=== PATIENT | female | born 1940 | race Caucasian/White ===

== ENCOUNTER → 2017-01-21 | Outpatient (CLI) | payer MEDICARE | LOC: KOH-I 14:32 | DX: M25.561 Pain in right knee (principal); M17.11 Unilateral primary osteoarthritis, right knee; Z88.8 Allergy status to other drugs, medicaments and biological substances | CPT/HCPCS: 73564 ==

== ENCOUNTER → 2017-03-12 | Outpatient (CLI) | payer MEDICARE ==
[2017-03-12 11:01] LABS: HEMOGLOBIN 13.9 gm/dl (12.3-15.3); RED BLOOD COUNT 4.92 M/UL (4.00-5.10); WHITE BLOOD COUNT 5.7 K/UL (4.5-11.0)
== END ==
LOC: LAB 09:58
DX: I10 Essential (primary) hypertension (principal); E03.9 Hypothyroidism, unspecified; E78.5 Hyperlipidemia, unspecified; M85.80 Other specified disorders of bone density and structure, unspecified site
CPT/HCPCS: 36415; 80053; 80061; 82550; 84439; 84443; 85027

== ENCOUNTER → 2021-04-17 | Outpatient (CLI) | payer MEDICARE ==
[~2021-04-17] MED LIST: AUGMENTIN 875-1 EACH PO; BENTYL 10MG CAP10 MG PO; CALCIUM600 MG PO; CARAFATE1 GM PO; CHILDREN'S ASPI81 MG PO; ELIQUIS2.5 MG PO; LEVOXYL50 MCG PO; LIPITOR20 MG PO; MULTI-VITAMIN1 EACH PO; NORCO 10-325 T1 EACH PO; NORVASC5 MG PO; OMEGA-31000 MG PO; OMNICEF 300 MG300 MG PO; ONDANSETRON ODT4 MG PO; ONE DAILY FOR1 EAC3 PO; PANTOPRAZOLE SO40 MG PO; PEPCID20 MG PO; PEPCID40 MG PO; PRILOSEC OTC20 MG PO; PROZAC40 MG PO; TOPROL XL50 MG PO; TYLENOL 8 HOUR650 MG PO; VISTARIL25 MG PO; VITAMIN D2000 UNI1 PO; ZESTRIL2.5 MG PO
== END ==
LOC: RAD 11:42
DX: M19.012 Primary osteoarthritis, left shoulder (principal)
CPT/HCPCS: 73030

== ENCOUNTER → 2022-08-11 | Outpatient (CLI) | payer MEDICARE | LOC: RAD 15:37 | DX: M16.12 Unilateral primary osteoarthritis, left hip (principal); M17.12 Unilateral primary osteoarthritis, left knee | CPT/HCPCS: 73502; 73560 ==